=== PATIENT | male | born 1955 | race African-American/Black ===

== ENCOUNTER 2018-06-20 06:43 | Emergency (ER) | payer BC ==
[~2018-06-20] VITALS: Ht 180.3 cm; Wt 99.8 kg
--- NOTE | 2018-06-20 07:32 | Emergency Room Report ---
History of Present Illness General Chief Complaint: General Complaint Source: Patient Present Illness HPI Patient is a 62-year-old male presented after increased left-sided shoulder and arm pain. Patient reports having onset of symptoms approximately 2:00 in the morning. Patient was having constant pain worse with movement. He reports having associated sharp pain to his left upper extremity. He denies any recent trauma. He states his been having diarrhea multiple times. He denies any grossly bloody stools. He states that he had previously been seen by industrial engineering intern yesterday. He is normally followed at the [facility] Allergies: Coded Allergies: No Known Allergies (Unverified , 06/20/18) Patient History Past Medical History: see triage record Reviewed Nursing Documentation: PMH: Agreed; PSxH: Agreed Physical Exam Vital Signs Date Time Temp Pulse Resp B/P (MAP) Pulse Ox O2 Delivery O2 Flow Rate FiO2 06/20/18 07:11 98.1 82 16 140/80 98 Room Air Sp02 EP Interpretation: reviewed, normal General Appearance: normal inspection, well appearing, no apparent distress, alert Head: atraumatic ENT: normal ENT inspection, hearing grossly normal, normal voice Neck: normal inspection, full range of motion, supple, no bony tend Respiratory: normal inspection, lungs clear, normal breath sounds, no respiratory distress, no retraction, no wheezing Cardiovascular #1: regular rate, rhythm, no edema Gastrointestinal: normal inspection, normal bowel sounds, non tender, soft, no guarding, no hernia Genitourinary: no CVA tenderness Musculoskeletal: normal inspection, back normal, normal range of motion Neurologic: normal inspection, alert, responsive, motor strength/tone normal, speech normal, other - decreased ROM. Psychiatric: normal inspection, judgement/insight normal, mood/affect normal Skin: normal inspection, normal color, no rash Medical Decision Making Diagnostic Impression: Primary Impression: Cervical radiculopathy ER Course Patient is 62-year-old male presented after increased arm pain. Differential diagnosis include was not limited to myocardial infarction, cervical radiculopathy, CVA among others. Because of complexity of patient's case laboratory testing and imaging studies were ordered. Patient was noted to have some concerning left-sided numbness. Patient was noted to have prior history of recent visit to his industrial engineering intern. I contacted the patient's industrial engineering intern at [facility] who stated the patient had a negative stress echo 1 year ago. Patient had a previous right bundle branch block which is currently seen on his current EKG. CT of the chest was ordered due to tracheal deviation seen on plain x-ray. Laboratory testing was notable for elevated alkaline phosphatase level. Troponin was negative. Given the patient's constant pain this essentially rules him out for myocardial infarction. CT of the cervical spine read by radiology showed multilevel degenerative changes which were consistent with the patient's locations of pain and increase in pain with range of motion of the neck.Patient was given pain medications. He is advised to follow-up with his primary care physician for physical therapy. Patient is advised to return if he had any weakness or facial droop or other concerns. Labs Test 06/20/18 08:11 White Blood Count 7.6 K/UL (4.8-10.8) Red Blood Count 5.38 M/UL (4.70-6.10) Hemoglobin 16.6 G/DL (14.2-18.0) Hematocrit 49.6 % (42.0-52.0) Mean Corpuscular Volume 92 FL (80-99) Mean Corpuscular Hemoglobin 30.9 PG (27.0-31.0) Mean Corpuscular Hemoglobin Concent 33.5 G/DL (32.0-36.0) Red Cell Distribution Width 13.0 % (11.6-14.8) Platelet Count 178 K/UL (150-450) Mean Platelet Volume 8.7 FL (6.5-10.1) Neutrophils (%) (Auto) 66.1 % (45.0-75.0) Lymphocytes (%) (Auto) 23.6 % (20.0-45.0) Monocytes (%) (Auto) 7.6 % (1.0-10.0) Eosinophils (%) (Auto) 1.7 % (0.0-3.0) Basophils (%) (Auto) 1.0 % (0.0-2.0) D-Dimer 0.25 mg/L FEU (0.00-0.49) Sodium Level 140 MMOL/L (136-145) Potassium Level 4.0 MMOL/L (3.5-5.1) Chloride Level 106 MMOL/L (98-107) Carbon Dioxide Level 24 MMOL/L (21-32) Anion Gap 10 mmol/L (5-15) Blood Urea Nitrogen 24 mg/dL (7-18) Creatinine 1.3 MG/DL (0.55-1.30) Estimat Glomerular Filtration Rate > 60 mL/min (>60) Glucose Level 92 MG/DL (74-106) Calcium Level 9.3 MG/DL (8.5-10.1) Total Bilirubin 1.0 MG/DL (0.2-1.0) Aspartate Amino Transf (AST/SGOT) 21 U/L (15-37) Alanine Aminotransferase (ALT/SGPT) 22 U/L (12-78) Alkaline Phosphatase 121 U/L (46-116) Total Creatine Kinase 161 U/L (26-308) Creatine Kinase MB 2.1 NG/ML (0.0-3.6) Creatine Kinase MB Relative Index 1.3 Troponin I 0.000 ng/mL (0.000-0.056) Pro-B-Type Natriuretic Peptide 27 pg/mL (0-125) Total Protein 8.0 G/DL (6.4-8.2) Albumin 3.8 G/DL (3.4-5.0) Globulin 4.2 g/dL Albumin/Globulin Ratio 0.9 (1.0-2.7) Lipase 222 U/L (73-393) Last Vital Signs Date Time Temp Pulse Resp B/P (MAP) Pulse Ox O2 Delivery O2 Flow Rate FiO2 06/20/18 07:11 98.1 82 16 140/80 98 Room Air Status: improved Disposition: HOME, SELF-CARE Condition: Stable Scripts Gabapentin* (GABAPENTIN*) 400 Mg Capsule 400 MG ORAL THREE TIMES A DAY, #30 CAP 0 Refills Prov: Steve Lebron MD 06/20/18 Steve Lebron MD Jun 20, 2018 07:32
--- NOTE | 2018-06-20 08:22 | NUR ---
ED Nurse Note: pt walked in with family c/o left sided body pain started since 2 am. pt hard stick iv established blood and urine sent to lab . pt down to ct
[2018-06-20 08:24] VITALS: BP 159/89
[2018-06-20 08:24] LABS: EOSINOPHILS % (AUTO) 1.7 % (0.0-3.0); HEMATOCRIT 49.6 % (42.0-52.0); HEMOGLOBIN 16.6 G/DL (14.2-18.0); LYMPHOCYTES % (AUTO) 23.6 % (20.0-45.0); MEAN CORPUSCULAR VOLUME 92 FL (80-99); MONOCYTES % (AUTO) 7.6 % (1.0-10.0); NEUTROPHILS % (AUTO) 66.1 % (45.0-75.0); PLATELET COUNT 178 K/UL (150-450); RED BLOOD COUNT 5.38 M/UL (4.70-6.10); WHITE BLOOD COUNT 7.6 K/UL (4.8-10.8)
[2018-06-20 08:36] LABS: ANION GAP 10 mmol/L (5-15); BLOOD UREA NITROGEN 24 mg/dL (7-18); CALCIUM 9.3 MG/DL (8.5-10.1); CARBON DIOXIDE 24 MMOL/L (21-32); CHLORIDE 106 MMOL/L (98-107); CREATININE 1.3 MG/DL (0.55-1.30); SODIUM 140 MMOL/L (136-145)
[2018-06-20] MEDS ORDERED: Morphine Sulfate 4mg/ml Inj (IV USE ONLY) IVP ONE (08:45)
[2018-06-20 08:48] LABS: ALANINE AMINOTRANSFERASE 22 U/L (12-78); ALBUMIN 3.8 G/DL (3.4-5.0); ALBUMIN/GLOBULIN RATIO 0.9 (1.0-2.7); ALKALINE PHOSPHATASE 121 U/L (46-116); ASPARTATE AMINO TRANSFERASE 21 U/L (15-37); CKMB 2.1 NG/ML (0.0-3.6); CREATINE KINASE 161 U/L (26-308)
--- NOTE | 2018-06-20 09:02 | Diagnostic Imaging Report ---
Indication: Headache Technique: Contiguous 5 mm thick transaxial imaging of the head obtained in a Siemens Sensation [address] scanner. Soft tissue and bone windows generated. Automatic Exposure Control was utilized. Total Dose length Product (DLP): 1362.[address] Dose Index Volume (CTDIvol): 70.38 mGy Comparison: none Findings: The size and configuration of the cortical sulci, basal cisterns, and ventricles are within normal limits for age. There is no mass effect, midline shift, or edema identified. There is no evidence of acute hemorrhage or abnormal intra-axial or extra-axial fluid collections. The bones and soft tissues are unremarkable. Impression: No mass effect, edema or acute bleed. The CT scanner at [facility] is accredited by the [employer] and the scans are performed using dose optimization techniques as appropriate to a performed exam including Automatic Exposure control.
[2018-06-20] MEDS ORDERED: DiphenhydrAMINE 50mg/ml Inj IVP ONE (09:15)
[2018-06-20] MEDS ORDERED: Isovue-370 150ml vial INJ PRN (09:30)
[2018-06-20 10:13] VITALS: BP 153/69
--- NOTE | 2018-06-20 10:14 | NUR ---
ED Nurse Note: pt needed a large iv for cta . pt hard stick edward from interventional radiology came and established a 20 g to rt upper arm .
--- NOTE | 2018-06-20 10:27 | NUR ---
ED Nurse Note: pt own to cta.
--- NOTE | 2018-06-20 10:59 | Diagnostic Imaging Report ---
Indication: Neck pain. Technique: Continuous helical imaging of the cervical spine was obtained transaxially from the skull base to the upper thoracic spine. 2-D coronal and sagittal reformatted images were obtained. Automatic Exposure Control was utilized. Total Dose length Product (DLP): 595.[address] Dose Index Volume (CTDIvol): 27.41 mGy Comparison: None Findings: There is no acute fracture or malalignment identified. There is no soft tissue swelling identified. Moderate uncovertebral arthritis is demonstrated at multiple levels. Some of the intervertebral discs show narrowing and osteophytes. There is neural foraminal stenosis mild to moderate bilateral at C3-3-4, moderate to severe bilateral at C4-5, moderate to severe bilateral at C5-6 and moderate to severe left-sided C6-7. There is slight reversal cervical lordosis due to the degenerative disease present. Impression: No acute injury Moderate spondylosis as described above The CT scanner at [facility] is accredited by the [employer] and the scans are performed using dose optimization techniques as appropriate to a performed exam including Automatic Exposure control.
--- NOTE | 2018-06-20 11:18 | Diagnostic Imaging Report ---
Indication: Chest pain Technique: Continuous helical transaxial imaging of the chest was obtained from the thoracic inlet to the upper abdomen during rapid intravenous contrast administration. Arterial phase of enhancement obtained. Coronal 2-D reformats were also obtained and maximum intensity projection images in multiple planes. Study obtained in a Siemens sensation [address] Automatic Exposure Control was utilized. Total Dose length Product (DLP): 1075.[address] Dose Index Volume (CTDIvol): 33.36 mGy Comparison: None Findings: The pulmonary artery is well opacified and shows no filling defects. There is no adenopathy, pleural or pericardial effusions are identified. There is no aortic dissection or aneurysm identified within the chest. There is mild basal atelectasis. Visualized part of the upper abdomen shows hypodensities within the left kidney which may be cysts but not adequately evaluated on the current study. Some reflux contrast noted within the azygos vein. Minimal callus patient of aorta demonstrated. Impression: No evidence of pulmonary embolus, aortic dissection or aneurysm. Incidental findings as above The CT scanner at [facility] is accredited by the [employer] and the scans are performed using dose optimization techniques as appropriate to a performed exam including Automatic Exposure control.
--- NOTE | 2018-06-20 11:52 | Diagnostic Imaging Report ---
Indication: Dyspnea Comparison: None A single view chest radiograph was obtained. Findings: Cardiomediastinal appearance is within normal limits for age. The lungs are clear. Pulmonary vascularity is appropriate. The diaphragmatic contour is smooth and costophrenic angles are sharp. No pleural effusions are identified. The bones are unremarkable. Impression: No acute findings
--- NOTE | 2018-06-20 11:53 | Diagnostic Imaging Report ---
Indication: left shoulder pain Findings: 3 views of the left shoulder were obtained. Alignment of the left shoulder is normal. No acute fracture is identified. Soft tissues are unremarkable. Impression: No acute injury
[2018-06-20] MEDS ORDERED: GABAPENTIN400 MG ORAL (12:33)
[2018-06-20 12:45] VITALS: BP 150/94
--- NOTE | 2018-06-20 12:45 | NUR ---
ED Nurse Note: Patient is being dischraged from medical care. Sling applied to LUE as ordered. D/C instruction and prescriptions given to patient. Patient verbalized understanding of it. Removed ID band and IV. Patient ambulated out with steady gait with all his belongins, accompained by spouse.
--- NOTE | 2018-06-20 21:52 | Cardiology Report ---
APPROVED REPORT EKG Measurement Heart [id number] Normal sinus rhythm Left axis deviation Right bundle branch block Abnormal ECG
== END 2018-06-20 12:45 | disposition home or self-care (01) ==
LOC: EMR 07:40
DX: M47.22 Other spondylosis with radiculopathy, cervical region (principal); R51 Headache
CPT/HCPCS: 36415; 70450; 71045; 71275; 72125; 73030; 80053; 82550; 82553; 83690; 83880; 84484; 85025; 85379; 93005; 96374; 96375; 99284; J2270; Q9967